=== PATIENT | male | born 1965 | race Caucasian/White ===

== ENCOUNTER 2019-05-29 15:06 | Outpatient (CLI) | payer OTHER ==
--- NOTE | 2019-05-29 15:39 | ULT ---
Simple right lower extremity venous ultrasound with Doppler HISTORY: Swelling. Edema. COMPARISON: none TECHNIQUE: Grayscale, color flow, Doppler imaging and spectral waveform analysis of the right lower e xtremity venous system FINDINGS: There is compressibility, presence of flow and augmentation in the common femoral vein, femoral vein and popliteal vein. Flow the posterior tibial vein. Flow in the peroneal vein, greater saphenous vein and profunda femoral vein. IMPRESSION: No thrombus in the right lower extremity venous system
== END 2019-05-29 15:07 | disposition home or self-care (01) ==
LOC: ULT 15:06
PROVIDERS: ATTEND Nurse Practitioner Family
DX: M79.661 Pain in right lower leg (principal)